=== PATIENT | female | born 1950 | race Caucasian/White ===

== ENCOUNTER 2018-06-12 12:08 | Emergency (ER) | payer MEDICAID ==
[~2018-06-12] VITALS: Ht 175.3 cm; Wt 120.7 kg
[2018-06-12 12:19] VITALS: Ht 175.3 cm; Wt 120.7 kg
[2018-06-12] MEDS ORDERED: GLYC1SUP92 PR (12:49)
[2018-06-12] MEDS ORDERED: MAGN296S40 PO (12:49)
--- NOTE | 2018-06-12 12:53 | ERD ---
ER Documentation Chief Complaint Chief Complaint Complains of constipation x 2 weeks Hx of Stents cardiac surgery recently HPI 67-year-old female who presents with family member. The patient presents for evaluation of constipation. The patient states approximate 3 weeks of intermittent constipation only slightly alleviated by senna. She denies any significant abdominal pain or discomfort. No chest pain or shortness of breath nausea or vomiting. She denies any [id number] medications, no narcotics. No weight changes. ROS All systems reviewed and are negative except as per history of present illness. Medications Home Meds Active Scripts Glycerin* (Glycerin (Adult)*) 1 Each Supp.rect, 1 EACH [place] DAILY PRN for CONSTIPATION, #10 SUPP.RECT Prov:NAVIN PERAZA MD 06/12/18 Magnesium Citrate* (Magnesium Citrate*) 296 Ml Solution, 296 ML PO ONCE PRN for CONSTIPATION, #1 BOTTLE 3 Refills Prov:NAVIN PERAZA MD 06/12/18 Allergies Allergies: Coded Allergies: No Known Allergy (Unverified , 06/12/18) FmHx Family History: No diabetes Physical Exam Vitals Vital Signs Date Temp Pulse Resp B/P (MAP) Pulse Ox O2 O2 Flow FiO2 Time Delivery Rate 06/12/18 98.2 62 20 192/102 97 12:19 (132) Physical Exam General: Well developed, well nourished, no acute distress Head: Normocephalic, atraumatic. Eyes: Pupils equally reactive, EOM intact ENT: Moist mucous membranes Neck: Supple, no lymphadenopathy Respiratory: Lungs clear bilaterally, no distress Cardiovascular: RRR, no murmurs, rubs, or gallops Abdominal: Soft, non-tender, non-distended, no peritoneal signs : Deferred MSK: No edema, no unilateral swelling, 5/5 strength Neurologic: Alert and oriented, moving all extremities, normal speech, no focal weakness, no cerebellar signs Skin: No rash Psych: Normal mood Results 24 hrs Current Medications Medications Dose Sig/Alix Start Time Status Last (Trade) Ordered Route PRN Stop Time Admin Dose Reason Admin Magnesium 300 ml ONCE ONCE 06/12/18 Citrate PO 13:00 (Citroma) 06/12/18 13:01 Procedures/MDM The patient's clinical exam is benign. Her high blood pressure is improved without intervention. Patient's blood pressure was elevated (>120/80) but appears stable without evidence of hypertensive emergency or urgency. The patient was counseled about the risks of hypertension and urged to pursue outpatient monitoring and therapy within a week with their primary care physician. The patient's presentation is very consistent with uncomplicated constipation. She has no risk factors, signs or symptoms concerning for acute intra-abdominal process, bowel obstruction. The patient is only tried senna without relief. I believe stronger bowel regimen including magnesium citrate and glycerin suppository would be appropriate. Expectant management discussed. The patient needs to follow-up with her primary care physician for this subacute and nonemergent condition. The patient can be safely discharged at this time. Return precautions were thoroughly discussed and understood. During the patient's encounter translation services were utilized Language: Aremenian Source: Family We discussed follow up with the patient's primary care doctor within 24 to 48 hours as needed. We also discussed return to the emergency room for worsening symptoms or worsening condition. Outpatient referral: [None required] Discharge Medications: Magnesium citrate, glycerin suppository Departure Diagnosis: Primary Impression: Constipation Constipation type: unspecified constipation type Qualified Codes: K59.00 - Constipation, unspecified Additional Impression: Asymptomatic hypertensive urgency Condition: Stable Patient Instructions: Constipation (Adult) Referrals: COMM[facility]IN[facility] YOU HAVE RECEIVED A MEDICAL SCREENING EXAM AND THE RESULTS INDICATE THAT YOU DO NOT HAVE A CONDITION THAT REQUIRES URGENT TREATMENT IN THE EMERGENCY DEPARTMENT. FURTHER EVALUATION AND TREATMENT OF YOUR CONDITION CAN WAIT UNTIL YOU ARE SEEN IN YOUR DOCTORS OFFICE WITHIN THE NEXT 1-2 DAYS. IT IS YOUR RESPONSIBILITY TO MAKE AN APPOINTMENT FOR FOLOW-UP CARE. IF YOU HAVE A PRIMARY DOCTOR --you should call your primary doctor and schedule an appointment IF YOU DO NOT HAVE A PRIMARY DOCTOR YOU CAN CALL OUR PHYSICIAN REFERRAL HOTLINE AT IF YOU CAN NOT AFFORD TO SEE A PHYSICIAN YOU CAN CHOSE FROM THE FOLLOWING [facility] [address] [facility] [address] [facility] [address] [facility] [address] [facility] [address] [facility]. [facility] [address] [facility]. [facility] YOU HAVE RECEIVED A MEDICAL SCREENING EXAM AND THE RESULTS INDICATE THAT YOU DO NOT HAVE A CONDITION THAT REQUIRES URGENT TREATMENT IN THE EMERGENCY DEPARTMENT. FURTHER EVALUATION AND TREATMENT OF YOUR CONDITION CAN WAIT UNTIL YOU ARE SEEN IN YOUR DOCTORS OFFICE WITHIN THE NEXT 1-2 DAYS. IT IS YOUR RESPONSIBILITY TO MAKE AN APPOINTMENT FOR FOLOW-UP CARE. IF YOU HAVE A PRIMARY DOCTOR --you should call your primary doctor and schedule and appointment IF YOU DO NOT HAVE A PRIMARY DOCTOR YOU CAN CALL OUR PHYSICIAN REFERRAL HOTLINE AT . IF YOU CAN NOT AFFORD TO SEE A PHYSICIAN YOU CAN CHOSE FROM THE FOLLOWING [facility]: [facility] [address] [place] [address] [facility] [address] [place] [address] [facility] [address] [place] [address] Additional Instructions: Call your primary care doctor TOMORROW for an appointment during the next 1 WEEK.Tell the medical unit secretary that you were referred from this facility.See the doctor sooner or return here if your condition worsens before your appointment time. Return for fever, pain, vomiting, worsening symptoms. NAVIN PERAZA MD Jun 12, 2018 12:53
[2018-06-12] MEDS ORDERED: MAGNESIUM CITRATE 300 ML BTL PO ONE (13:00)
[2018-06-12 13:17] VITALS: BP 133/75; PULSE 65; RESP 16
== END 2018-06-12 13:16 | disposition home or self-care (01) ==
LOC: E/R 12:08
DX: K59.00 Constipation, unspecified (principal); I16.0 Hypertensive urgency
CPT/HCPCS: Z7502; Z7610; 99282

== ENCOUNTER 2018-07-07 22:08 | Emergency (ER) | payer MEDICAID ==
[~2018-07-07] VITALS: Wt 127.3 kg
[~2018-07-07 22:08] MED LIST: CA CHLORIDE 10% 10 ML SYRINGE ONE; EPINEPHrine 0.1 MG/ML SYG ONE; GLYC1SUP92 PR; MAGN296S40 PO; NA BICARBONATE 8.4% 50 ML SYG ONE
--- NOTE | 2018-07-07 22:42 | ERD ---
ER Documentation Chief Complaint Chief Complaint BIB RA 90 in cardiac arrest HPI 68-year-old female with a history of coronary artery disease status post CABG a few months ago brought in by ambulance from home. Initially ambulance was called as the patient was not feeling well and had epigastric pain. When they loaded her into the ambulance, she became bradycardic and pulseless. CPR was immediately started. Epinephrine was given. Initially she had PEA. After epi was given, she did have a shockable rhythm and was shocked once with no return of spontaneous circulation. Upon arrival here, the patient is asystolic on the monitor. Per family who later came to bedside, the patient was seen at another hospital yesterday as she was not feeling well. Reportedly her workup was negative and she was sent home. ROS Unable to obtain as patient unresponsive Medications Home Meds Active Scripts Glycerin* (Glycerin (Adult)*) 1 Each Supp.rect, 1 EACH [place] DAILY PRN for CONSTIPATION, #10 SUPP.RECT Prov:NAVIN PERAZA MD 06/12/18 Magnesium Citrate* (Magnesium Citrate*) 296 Ml Solution, 296 ML PO ONCE PRN for CONSTIPATION, #1 BOTTLE 3 Refills Prov:NAVIN PERAZA MD 06/12/18 Allergies Allergies: Coded Allergies: No Known Allergy (Unverified , 06/12/18) PMhx/Soc History of Surgery: Yes (cabg) Hx Cardiac Disorders: Yes (CAD, HTN) Hx Miscellaneous Medical Probl: Yes (CKD) Hx Alcohol Use: No Hx Substance Use: No Hx Tobacco Use: No FmHx unable to obtain Physical Exam Physical Exam VITAL SIGNS: GENERAL: Patient is lying on gurney and is unresponsive, cyanotic, pale HEAD: Head is normocephalic. No evidence of trauma. No scalp or facial swelling EYES: Pupils are nonreactive. ENT: Oropharynx and nasopharynx are clear NECK: Supple. No masses CHEST: sternotomy scar noted RESPIRATORY: Breath sounds equal bilaterally with bagging CV: No heart sounds heard. No palpable carotid or femoral pulses ABDOMEN: Soft, non-distended. No masses EXTREMITIES: No deformity SKIN: Cool, dry.No jaundice. No diaphoresis NEUROLOGIC: Not alert. Unresponsive to external stimuli Results 24 hrs Laboratory Tests Test 07/07/18 22:13 Bedside Glucose 416 mg/dL Procedures/MDM Endotracheal Intubation by me: Pre assessment performed. See preceding note for details. RSI: No meds required, patient in cardiac arrest, no gag Blade: Mac 4 ET Tube: 7.5 cm Depth: 23 cm at the lip Intubation confirmed by equal breath sounds, quiet over the stomach. Cardiopulmonary Resuscitation by me: Patient presented with CPR actively in progress. She was pulseless upon arrival. She was immediately intubated at first pulse check. See code documentation for specific details. ACLS and BLS were performed with high quality chest compressions and minimal interruptions. Reversible causes were assessed and treated. After 30 minutes of down time with no ROSC, family and I decided to cease any further resuscitation efforts. Patient never regained pu lses and continuously had a nonshockable rhythm. Departure Diagnosis: Primary Impression: Cardiac arrest Condition: Critical () JUAN GUZMAN MD Jul 07, 2018 22:42
== END 2018-07-08 01:45 | disposition expired ==
LOC: E/R 22:08
DX: I46.9 Cardiac arrest, cause unspecified (principal); I25.10 Atherosclerotic heart disease of native coronary artery without angina pectoris; N18.9 Chronic kidney disease, unspecified; I12.9 Hypertensive chronic kidney disease with stage 1 through stage 4 chronic kidney disease, or unspecified chronic kidney disease; Z95.1 Presence of aortocoronary bypass graft
CPT/HCPCS: 31500; 82962; 92950; J0171; Z7502; Z7610